=== PATIENT | female | born 1995 | race Caucasian/White ===

== ENCOUNTER 2018-04-07 14:58 | Emergency (ER) | payer MEDICAID ==
[~2018-04-07] VITALS: Ht 165.1 cm; Wt 56.7 kg
[2018-04-07 15:18] VITALS: BP 117/61
[2018-04-07 15:56] LABS: APPEARANCE,URINE Clear (CLEAR); BILIRUBIN,URINE Negative (NEGATIVE); BLOOD, URINE Negative Ery/uL (NEGATIVE); COLOR,URINE Yellow (YELLOW); KETONES,URINE Negative (NEGATIVE); LEUKOCYTE ESTERASE ,URINE Negative (NEGATIVE); NITRITE, URINE Negative (NEGATIVE); PROTEIN,URINE Negative (NEGATIVE); UGLUCOSE Negative (NEGATIVE); UROBILINOGEN,URINE 0.2 EU/dL (0.2)
== END 2018-04-07 16:47 | disposition home or self-care (01) ==
LOC: ER 15:00
DX: B34.9 Viral infection, unspecified (principal)
CPT/HCPCS: 81000-TC; 84703-TC

== ENCOUNTER 2018-11-05 07:40 | Emergency (ER) | payer MEDICAID ==
[~2018-11-05] VITALS: Ht 172.7 cm; Wt 48.1 kg
[2018-11-05 07:52] VITALS: BP 110/62
[2018-11-05 08:14] LABS: APPEARANCE,URINE Cloudy (CLEAR); BILIRUBIN,URINE SMALL (NEGATIVE); BLOOD, URINE Large Ery/uL (NEGATIVE); COLOR,URINE Amber (YELLOW); KETONES,URINE Negative (NEGATIVE); LEUKOCYTE ESTERASE ,URINE Small (NEGATIVE); NITRITE, URINE Positive (NEGATIVE); PH,URINE 5.5 (5.0-8.0); PROTEIN,URINE 100 mg/dl (NEGATIVE); UGLUCOSE Negative (NEGATIVE); UROBILINOGEN,URINE 0.2 EU/dL (0.2)
[2018-11-05 08:29] LABS: BACTERIA,URINE 1+ /HPF (None Seen); SQUAMOUS EPITHELIAL CELL,UR Moderate /HPF (None Seen)
== END 2018-11-05 09:38 | disposition home or self-care (01) ==
LOC: ER 07:40
DX: N39.0 Urinary tract infection, site not specified (principal)
CPT/HCPCS: 81000-TC; 84703-TC; 87086-TC; 87186-TC

== ENCOUNTER 2019-03-09 13:15 | Emergency (ER) | payer MEDICAID, OTHER ==
[~2019-03-09] VITALS: Ht 165.1 cm; Wt 48.1 kg
[2019-03-09 13:20] VITALS: BP 125/78
--- NOTE | 2019-03-09 13:49 | NUR ---
Patient discharged to home in stable condition. Written and verbal after care instructions given. Patient verbalizes understanding of instruction.
== END 2019-03-09 13:49 | disposition home or self-care (01) ==
LOC: ER 13:15
DX: K12.1 Other forms of stomatitis (principal)

== ENCOUNTER 2021-02-13 17:39 | Emergency (ER) | payer MEDICAID, OTHER ==
[~2021-02-13] VITALS: Ht 170.2 cm; Wt 48.5 kg
[2021-02-13 17:45] VITALS: BP 113/82
--- NOTE | 2021-02-13 18:35 | NUR ---
REFUSED TO SIGN DC PAPER
--- NOTE | 2021-02-13 18:35 | NUR ---
Patient discharged to home in stable condition. Written and verbal after care instructions given. Patient verbalizes understanding of instruction.
== END 2021-02-13 18:36 | disposition home or self-care (01) ==
LOC: ER 17:42
DX: J32.9 Chronic sinusitis, unspecified (principal)

== ENCOUNTER 2021-08-13 19:41 | Emergency (ER) | payer MEDICAID ==
[~2021-08-13] VITALS: Ht 165.1 cm; Wt 54.4 kg
--- NOTE | 2021-08-13 20:02 | NUR ---
TO ER BED 6. BIBS C/O CHEST PAIN AND PALPITATIONS. TESTED POSITIVE FOR COVID ON SUNDAY. TOOK TYLENOL WITH LITTLE RELIEF. CONNECTED TO MONITOR. COVID PRECAUTIONS IN PLACE. AWAITING MD HARRIS
[2021-08-13] MEDS ORDERED: IBUP-1957 PO (20:08)
--- NOTE | 2021-08-13 20:12 | NUR ---
ATTACHED TO MONITOR
[2021-08-13] MEDS ORDERED: IBUPROFEN 600 MG TABLET ONE (20:14)
[2021-08-13] MEDS ORDERED: IBUPROFEN 600 MG TABLET PO ONE (20:30)
--- NOTE | 2021-08-13 21:29 | NUR ---
Patient discharged to home in stable condition. Written and verbal after care instructions given. Patient verbalizes understanding of instruction.
[2021-08-13 21:31] VITALS: BP 115/77
== END 2021-08-13 21:32 | disposition home or self-care (01) ==
LOC: ER 19:45
DX: U07.1 COVID-19 (principal); R07.81 Pleurodynia; Z79.1 Long term (current) use of non-steroidal anti-inflammatories (NSAID)
CPT/HCPCS: 71045-TC